=== PATIENT | female | born 1985 | race Caucasian/White ===

== ENCOUNTER 2017-05-16 12:06 | Emergency (ER) | payer BC ==
[2017-05-16] MEDS ORDERED: HYDROmorphone 1 MG/ML Syringe IVPUSH ONE (12:30)
[2017-05-16] MEDS ORDERED: Sodium Chloride 0.9% 10 ML Syringe FLUSH PRN ×2 (12:32→15:13)
[2017-05-16] MEDS ORDERED: Sodium Chloride 0.9% 1,000 ML IV ONE (12:32)
--- NOTE | 2017-05-16 12:39 | EDM.PDOC ---
ED HPI GENERAL MEDICAL PROBLEM - General Chief Complaint: Back Pain or Injury Stated Complaint: LEFT SIDE PAIN/BACK PAIN Time Seen by Provider: 05/16/17 12:21 Source of Information: Reports: Patient History Limitations: Reports: No Limitations - History of Present Illness INITIAL COMMENTS - FREE TEXT/NARRATIVE: Patient is a 31 year old female who presents to the E.D. complaining of left sided CVA/back pain that radiates to the left upper quadrant. States it came on abruptly while sitting at her desk. Pain is worsened with palpation and taking a deep breath. No prior history of similar symptoms. States with standing she gets dizzy and feels her legs are going to give out with worsening pain. Has a history of chronic diarrhea after gallbladder removed. States the pain is sharp in nature and at times feels as if her intestines are getting pulled through her ribs. Has history of cysts to both kidneys. Denies fever, sinus congestion, cough, shows breath, body aches, recent sick exposures, dysuria, blood in her stool, rash, or any additional complaints. left flank area/ribs Pain Score (Numeric/FACES): 7 - Related Data Allergies Allergy/AdvReac Type Severity Reaction Status Date / Time No Known Allergies Allergy Verified 05/16/17 12:17 Home Meds: Home Meds Levothyroxine [Synthroid] 50 mg DAILY 02/11/14 [History] Ascorbate Calcium [Vitamin C] 500 mg PO DAILY 05/16/17 [History] Canagliflozin [Invokana] 100 mg PO BID 05/16/17 [History] Cyclobenzaprine [Flexeril] 15 mg PO BEDTIME 05/16/17 [History] Ergocalciferol (Vitamin D2) [Vitamin D2] 2,000 unit PO DAILY 05/16/17 [History] Gabapentin [Neurontin] 100 mg PO TID 05/16/17 [History] Multivitamin [Multivitamins] 1 each PO DAILY 05/16/17 [History] Vitamin B Complex 1 each PO DAILY 05/16/17 [History] buPROPion [Wellbutrin] 100 mg PO BID 05/16/17 [History] medroxyPROGESTERone Acetate [Depo-Provera] 150 mg IM ASDIRECTED 05/16/17 [ History] Past Medical History Gastrointestinal History: Reports: Cholelithiasis Genitourinary History: Reports: Other (See Below) Other Genitourinary History: cyst on kidney 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: Other (See Below) Other OB/BYN History: is on depo prevara injection Musculoskeletal History: Reports: Back Pain, Chronic Psychiatric History: Reports: Other (See Below) Other Psychiatric History: takes wellbutrin for smoking Endocrine/Metabolic History: Reports: Hypothyroidism - Past Surgical History HEENT Surgical History: Reports: Tonsillectomy GI Surgical History: Reports: Appendectomy, Cholecystectomy Social & Family History - Family History Family Medical History: Noncontributory - Tobacco Use Smoking Status *Q: Current Every Day Smoker Years of Tobacco use: 10 Packs/Tins Daily: 0.5 - Caffeine Use Caffeine Use: Reports: Coffee, Soda - Alcohol Use Days Per Week of Alcohol Use: 0 - Recreational Drug Use Recreational Drug Use: No - Living Situation & Occupation Living situation: Reports: Single Occupation: Employed ED ROS GENERAL - Review of Systems Review Of Systems: See Below Constitutional: Denies: Fever, Chills, Decreased Appetite HEENT: Reports: No Symptoms Respiratory: Reports: Pleuritic Chest Pain. Denies: Shortness of Breath, Cough Cardiovascular: Reports: Chest Pain, Lightheadedness. Denies: Dyspnea on Exertion, Palpitations GI/Abdominal: Reports: Abdominal Pain (Left upper quadrant), Diarrhea. Denies: Black Stool, Bloody Stool, Constipation, Decreased Appetite, Distension, Flatus , Hematemesis, Melena, Nausea, Vomiting : Reports: Flank Pain (Left). Denies: Discharge, Dysuria, Frequency, Hematuria, Pain, Urgency Musculoskeletal: Reports: Back Pain (Left posterior/lateral back pain.) Skin: Reports: No Symptoms Neurological: Reports: Dizziness. Denies: Headache, Numbness, Tingling, Difficulty Walking ED EXAM, GI/ABD - Physical Exam Exam: See Below Exam Limited By: No Limitations General Appearance: Alert, WD/WN, Mild Distress Ears: Hearing Grossly Normal Nose: Normal Inspection Throat/Mouth: Normal Inspection, Normal Oropharynx, Normal Voice, No Airway Compromise Neck: Normal Inspection, Supple Respiratory/Chest: No Respiratory Distress, Lungs Clear, Normal Breath Sounds, Chest Non-Tender Cardiovascular: Normal Peripheral Pulses, Regular Rate, Rhythm, No Murmur GI/Abdominal Exam: Normal Bowel Sounds, Soft, No Organomegaly, No Distention, Tender (Left upper quadrant with palpation that extends into the left flank and CVA.) Back Exam: Normal Inspection, Full Range of Motion, CVA Tenderness (L) Extremities: Normal Inspection, Normal Range of Motion, Non-Tender, No Pedal Edema, Normal Capillary Refill Neurological: Alert, Oriented, CN II-XII Intact, Normal Cognition Psychiatric: Normal Affect, Normal Mood Skin Exam: Warm, Dry, Intact, Normal Color, No Rash Course - Vital Signs Last Recorded V/S: Last Vital Signs Temp 97.4 F 05/16/17 12:14 Pulse 109 H 05/16/17 12:14 Resp 18 05/16/17 12:14 BP 140/94 H 05/16/17 12:14 Pulse Ox 100 05/16/17 12:14 Orthostatic Blood Pressure [ 130/92 Standing] Orthostatic Blood Pressure [ 146/85 Sitting] Orthostatic Blood Pressure [ 131/84 Supine] - Orders/Labs/Meds Orders: Active Orders 24 hr Category Date Time Status Orthostatic Vital Signs [RC] ASDIRECTED Care 05/16/17 12:32 Active Peripheral IV Care [RC] . DIRECTED Care 05/16/17 12:32 Active Peripheral IV Care [RC] . DIRECTED Care 05/16/17 12:32 Active Abdomen Pelvis w Cont [CT] Stat Exams 05/16/17 15:01 Taken Sodium Chloride 0.9% [Saline Flush] Med 05/16/17 12:32 Active 10 ml FLUSH ASDIRECTED PRN Sodium Chloride 0.9% [Saline Flush] Med 05/16/17 15:13 Active 10 ml FLUSH ONETIME PRN Peripheral IV Insertion Adult [OM.PC] Stat Oth 05/16/17 12:29 Ordered Medication Orders Sodium Chloride (Saline Flush) 10 ml FLUSH ASDIRECTED PRN PRN Reason: Keep Vein Open Last Admin: 05/16/17 13:04 Dose: 10 ml Sodium Chloride (Saline Flush) 10 ml FLUSH ONETIME PRN PRN Reason: IV FLUSH Last Admin: 05/16/17 16:34 Dose: 10 ml Labs: Laboratory Tests 05/16/17 05/16/17 05/16/17 Range/Units 12:50 12:50 12:50 WBC 9.98 (3.98-10.04) K/mm3 RBC 5.20 (3.98-5.22) M/mm3 Hgb 15.6 (11.2-15.7) gm/L Hct 45.9 H (34.1-44.9) % MCV 88.3 (79.4-94.8) fl MCH 30.0 (25.6-32.2) pg MCHC 34.0 (32.2-35.5) g/dl RDW Std Deviation 42.5 (36.4-46.3) fL Plt Count 282 (182-369) K/mm3 MPV 9.4 (9.4-12.3) fl Neut % (Auto) 65.8 (34.0-71.1) % Lymph % (Auto) 23.5 (19.3-51.7) % [place] % (Auto) 9.3 (4.7-12.5) % Eos % (Auto) 1.0 (0.7-5.8) Baso % (Auto) 0.1 (0.1-1.2) % Neut # (Auto) 6.56 H (1.56-6.13) K/mm3 Lymph # (Auto) 2.35 (1.18-3.74) K/mm3 [place] # (Auto) 0.93 H (0.24-0.36) K/mm3 Eos # (Auto) 0.10 (0.04-0.36) K/mm3 Baso # (Auto) 0.01 (0.01-0.08) K/mm3 Sodium 140 (136-145) mEq/L Potassium 3.9 (3.5-5.1) mEq/L Chloride 105 (98-107) mEq/L Carbon Dioxide 23 (21-32) mEq/L Anion Gap 15.9 H (5-15) BUN 17 (7-18) mg/dL Creatinine 0.9 (0.55-1.02) mg/dL Est Cr Clr Drug Dosing 93.78 mL/min Estimated GFR (MDRD) > 60 (>60) mL/min BUN/Creatinine Ratio 18.9 H (14-18) Glucose 102 (74-106) mg/dL Calcium 9.7 (8.5-10.1) mg/dL Total Bilirubin 0.3 (0.2-1.0) mg/dL AST 21 (15-37) U/L ALT 40 (14-59) U/L Alkaline Phosphatase 103 (46-116) U/L C-Reactive Protein < 0.2 (<1.0) mg/dL Total Protein 8.1 (6.4-8.2) g/dl Albumin 4.0 (3.4-5.0) g/dl Globulin 4.1 gm/dL Albumin/Globulin Ratio 1.0 (1-2) HCG, Qual Negative (NEGATIVE) Urine Color (Yellow) Urine Appearance (Clear) Urine pH (5.0-8.0) Ur Specific [place] (1.005-1.030) Urine Protein (Negative) Urine Glucose (UA) (Negative) Urine Ketones (Negative) Urine Occult Blood (Negative) Urine Nitrite (Negative) Urine Bilirubin (Negative) Urine Urobilinogen (0.2-1.0) Ur Leukocyte Esterase (Negative) Urine RBC (0-5) /hpf Urine WBC (0-5) /hpf Ur Epithelial Cells (0-5) /hpf Urine Bacteria (FEW) /hpf Urine Mucus (FEW) /hpf 12//17 Range/Units 12:50 WBC (3.98-10.04) K/mm3 RBC (3.98-5.22) M/mm3 Hgb (11.2-15.7) gm/L Hct (34.1-44.9) % MCV (79.4-94.8) fl MCH (25.6-32.2) pg MCHC (32.2-35.5) g/dl RDW Std Deviation (36.4-46.3) fL Plt Count (182-369) K/mm3 MPV (9.4-12.3) fl Neut % (Auto) (34.0-71.1) % Lymph % (Auto) (19.3-51.7) % [place] % (Auto) (4.7-12.5) % Eos % (Auto) (0.7-5.8) Baso % (Auto) (0.1-1.2) % Neut # (Auto) (1.56-6.13) K/mm3 Lymph # (Auto) (1.18-3.74) K/mm3 [place] # (Auto) (0.24-0.36) K/mm3 Eos # (Auto) (0.04-0.36) K/mm3 Baso # (Auto) (0.01-0.08) K/mm3 Sodium (136-145) mEq/L Potassium (3.5-5.1) mEq/L Chloride (98-107) mEq/L Carbon Dioxide (21-32) mEq/L Anion Gap (5-15) BUN (7-18) mg/dL Creatinine (0.55-1.02) mg/dL Est Cr Clr Drug Dosing mL/min Estimated GFR (MDRD) (>60) mL/min BUN/Creatinine Ratio (14-18) Glucose (74-106) mg/dL Calcium (8.5-10.1) mg/dL Total Bilirubin (0.2-1.0) mg/dL AST (15-37) U/L ALT (14-59) U/L Alkaline Phosphatase (46-116) U/L C-Reactive Protein (<1.0) mg/dL Total Protein (6.4-8.2) g/dl Albumin (3.4-5.0) g/dl Globulin gm/dL Albumin/Globulin Ratio (1-2) HCG, Qual (NEGATIVE) Urine Color Colorless L (Yellow) Urine Appearance Clear (Clear) Urine pH 6.0 (5.0-8.0) Ur Specific [place] 1.010 (1.005-1.030) Urine Protein Negative (Negative) Urine Glucose (UA) 2+ H (Negative) Urine Ketones Negative (Negative) Urine Occult Blood Trace-lysed H (Negative) Urine Nitrite Negative (Negative) Urine Bilirubin Negative (Negative) Urine Urobilinogen 0.2 (0.2-1.0) Ur Leukocyte Esterase Negative (Negative) Urine RBC 0-5 (0-5) /hpf Urine WBC 0-5 (0-5) /hpf Ur Epithelial Cells 0-5 (0-5) /hpf Urine Bacteria Few (FEW) /hpf Urine Mucus Not seen (FEW) /hpf Meds: Medications Generic Name Dose Route Start Last Admin Trade Name Freq PRN Reason Stop Dose Admin Sodium Chloride 10 ml 05/16/17 12:32 05/16/17 13:04 Saline Flush FLUSH 10 ml ASDIRECTED PRN Administration Keep Vein Open Sodium Chloride 10 ml 05/16/17 15:13 05/16/17 16:34 Saline Flush FLUSH 10 ml ONETIME PRN Administration IV FLUSH Discontinued Medications Generic Name Dose Route Start Last Admin Trade Name Abraham PRN Reason Stop Dose Admin Diatrizoate Meglum/Diatrizoate Sod 90 ml 05/16/17 15:13 05/16/17 16:34 Gastrografin 37% PO 05/16/17 15:14 90 ml ONETIME ONE Administration Hydromorphone HCl 1 mg 05/16/17 12:30 05/16/17 13:02 Dilaudid IVPUSH 05/16/17 12:31 1 mg ONETIME ONE Administration Sodium Chloride 1,000 mls @ 999 mls/hr 05/16/17 12:32 05/16/17 13:03 Normal Saline IV 05/16/17 13:32 999 mls/hr ONETIME ONE Administration Iopamidol 125 ml 05/16/17 15:13 05/16/17 16:34 Isovue-300 (61%) IVPUSH 05/16/17 15:14 125 ml ONETIME ONE Administration - Re-Assessments/Exams Free Text/Narrative Re-Assessment/Exam: IV established with Dilaudid 1 mg IVP. Orthostatic vitals will be obtained. If positive we'll start normal saline 1000 mL over an hour. Initial labs and studies include CBC, chem 14, CRP, hCG, UA, and 2 view abdomen flat and upright. Orthostatic vitals negative. Labs reviewed: CBC and chemistry panel essentially normal. CRP less than 0.2. HCG negative. UA revealed glucose 2+, trace occult blood, urine color colors. Abdominal 2 view flat and upright: [place] stool within the colon. Questional dilatation of the colon and left hemicolon with air-fluid levels to the right hemicolon. Initially ordered CT of the abdomen and pelvis with no contrast with concerns of patient has a kidney stone. Discontinue this ordered will order with IV and oral contrast. Per radiology staff patients studies were sent to [facility] to have the CT study read. 05/16/17 18:08 CT abdomen and pelvis with IV and oral contrast impression: No acute findings. Shared results of CT study with pain is controlled. Mild fecal retention in the colon. Will send home with mag citrate. Discharge instructions as documente. Departure - Departure Time of Disposition: 18:13 Disposition: Home, Self-Care 01 Clinical Impression: Abdominal pain Fecal retention Qualifiers: Constipation type: unspecified constipation type Qualified Code(s): K59.00 - Constipation, unspecified - Discharge Information Instructions: Constipation, Adult, [id number], Abdominal Pain, Adult, Easy-to -Read, Pain Medicine Instructions, [id number] Referrals: Babak Orantes MD [Primary Care Provider] - Forms: ED Department Discharge, ED Return to Work/School Form Additional Instructions: As discussed no acute findings noted on CT study of the abdomen and pelvis. Lab work was essentially normal with no concerning findings. There was trace blood within the urine please follow up with PCP to ensure this resolves. There was also mild fecal impaction noted within the colon. This may be contributing to your discomfort. Treatment at this point will be mag citrate 296 mils this evening. Start taking MiraLAX one capful twice a day for the next 2 weeks and then changed to every day thereafter. Increase your water intake. Increased fiber intake. Follow-up with PCP for reevaluation in the next week. Return to ED for any new or worsening symptoms. For severe pain take norco 5/325 1 tab po every 4 [address] while taking the norco. - My Orders Last 24 Hours: My Active Orders 05/16/17 12:29 Peripheral IV Insertion Adult [OM.PC] Stat 05/16/17 12:32 Orthostatic Vital Signs [RC] ASDIRECTED Peripheral IV Care [RC] . DIRECTED Peripheral IV Care [RC] . DIRECTED Sodium Chloride 0.9% [Saline Flush] 10 ml FLUSH ASDIRECTED PRN 05/16/17 15:01 Abdomen Pelvis w Cont [CT] Stat 05/16/17 15:13 Sodium Chloride 0.9% [Saline Flush] 10 ml FLUSH ONETIME PRN - Assessment/Plan Last 24 Hours: My Active Orders 05/16/17 12:29 Peripheral IV Insertion Adult [OM.PC] Stat 05/16/17 12:32 Orthostatic Vital Signs [RC] ASDIRECTED Peripheral IV Care [RC] . DIRECTED Peripheral IV Care [RC] . DIRECTED Sodium Chloride 0.9% [Saline Flush] 10 ml FLUSH ASDIRECTED PRN 05/16/17 15:01 Abdomen Pelvis w Cont [CT] Stat 05/16/17 15:13 Sodium Chloride 0.9% [Saline Flush] 10 ml FLUSH ONETIME PRN
[2017-05-16] MEDS ORDERED: Iopamidol 612 MG/ML 150 ML Bottle IVPUSH ONE (15:13)
[2017-05-16] MEDS ORDERED: Diatrizoate Meglumine/Diatrizoate Sodium 37% 120 ML Bottle PO ONE (15:13)
--- NOTE | 2017-05-16 15:42 | CR ---
Abdomen: Supine and upright views of the abdomen were obtained. Comparison: Prior abdominal x-ray of 10/12/14. Previous cholecystectomy is noted. Bowel gas pattern appears within normal limits. No free air is identified. Scoliosis is present within the spine. Minimal degenerative change is scattered within the spine. No abnormal calcifications or soft tissue abnormality is seen. Impression: 1. Incidental findings as noted above. Diagnostic code #2
[2017-05-16] MEDS ORDERED: Magnesium Citrate Solution 296 ML Bottle PO ONE (18:55)
[2017-05-16] MEDS ORDERED: Magnesium Citrate Solution 296 ML Bottle ONE (18:58)
[2017-05-16 19:27] VITALS: BP 126/83
--- NOTE | 2017-05-17 06:49 | CT ---
CT abdomen and pelvis Technique: Multiple axial sections were obtained from above the dome of the diaphragm inferiorly through the pubic symphysis. Intravenous and oral contrast was utilized. Delayed images were also obtained through the bladder. Comparison: Prior CT abdomen and pelvis exam of 10/12/14. Findings: Visualized lung bases show slight atelectasis. Several calcifications are seen within the dome of the liver most likely representing mild diaphragmatic calcification. Liver shows no focal parenchymal abnormality. Fatty infiltration may be present within the liver. Surgical clips are seen from prior cholecystectomy. Common bile duct is slightly prominent in size measuring 1.6 cm likely residual from prior cholecystectomy. Adrenal glands show no nodule. Kidneys show symmetric contrast enhancement. Cyst is identified within the left kidney measuring 6.3 cm which has increased in size from previous exam at which time it measured 5.0 cm. Pancreas appears within normal limits. Aorta shows no aneurysmal dilatation. Small fat-containing umbilical hernia is seen. Previous appendectomy is noted. No pelvic mass or adenopathy is seen. Contrast noted within the bladder. Bone window settings were reviewed which appear within normal limits for the patient's age. Minimal increased stool is seen throughout the colon. Impression: 1. Incidental findings as noted above. Other than increased size of a left renal cyst, no significant interval change is seen from prior exam. 2. Nothing acute is identified. Diagnostic code #2 I agree with preliminary report issued by [employer] ([employer] preliminary report dictated on 05/16/17, 6:44 PM Central Time)
== END 2017-05-16 18:58 | disposition home or self-care (01) ==
LOC: JD.ED 12:06
DX: K59.00 Constipation, unspecified (principal); E03.9 Hypothyroidism, unspecified; F17.210 Nicotine dependence, cigarettes, uncomplicated; Z79.899 Other long term (current) drug therapy
CPT/HCPCS: 36415; 74020; 74177; 80053; 81001; 84703; 85025; 86140; 96361; 96374; 99284; A9270; J1170; J7040; J7050; Q9963; Q9967

== ENCOUNTER 2024-11-26 06:00 | Day surgery (SDC) | payer BC ==
[~2024-11-26 06:00] MED LIST: Sodium Chloride 0.9% 10 ML Syringe FLUSH PRN; Sodium Chloride 0.9% 10 ML Syringe FLUSH SCH; oxyCODONE ER 10 MG TAB.ER PO ONE
[2024-11-26] MEDS: Lactated Ringers 1,000 ML IV SCH (06:19)
[2024-11-26] MEDS: Acetaminophen 325 MG Tab PO ONE (06:19)
[2024-11-26] MEDS: Pregabalin 25 MG Cap PO ONE (06:19)
[2024-11-26] MEDS ORDERED: fentaNYL 100 MCG/2 ML SDV IVPUSH PRN (06:23)
[2024-11-26] MEDS ORDERED: HYDROmorphone 0.5 MG/0.5 ML Syringe IVPUSH PRN (06:23)
[2024-11-26] MEDS ORDERED: Ondansetron 4 MG/2 ML SDV IVPUSH PRN (06:23)
[2024-11-26] MEDS ORDERED: Ketorolac 30 MG/ML SDV ONE (06:30)
[2024-11-26] MEDS ORDERED: Ondansetron 4 MG/2 ML SDV ONE (06:30)
[2024-11-26] MEDS ORDERED: Midazolam 1 MG/ML 2 ML SDV ONE (06:30)
[2024-11-26] MEDS ORDERED: ceFAZolin 2 GM Vial ONE (06:30)
[2024-11-26] MEDS ORDERED: Dexamethasone 4 MG/ML 5 ML MDV ONE (06:30)
[2024-11-26] MEDS ORDERED: Propofol 200 MG/20 ML SDV ONE ×2 (06:30→07:46)
[2024-11-26] MEDS: oxyCODONE ER 10 MG TAB.ER PO ONE (06:31)
[2024-11-26] MEDS ORDERED: Lactated Ringers 1,000 ML ONE (06:34)
[2024-11-26] MEDS ORDERED: Lidocaine 1% 2 ML ONE (07:15)
[2024-11-26] MEDS: Morphine 8 MG, EPINEPHrine 0.3 MG, Cefuroxime 750 MG, Ketorolac 30 MG, Sodium Chloride ... PRN (08:08)
[2024-11-26] MEDS: VANCOmycin 1 GM SDV ONE (08:09)
[2024-11-26] MEDS: Tranexamic Acid 1,000 MG/10 ML Vial ONE (08:09)
[2024-11-26] MEDS: oxyCODONE 5 MG Tab PO PRN (11:10)
[2024-11-26 13:14] VITALS: BP 103/63; PULSE 70
== END 2024-11-26 12:35 | disposition home or self-care (01) ==
LOC: JD.SDS 06:00
PROVIDERS: ATTEND Orthopaedic Surgery
DX: M16.11 Unilateral primary osteoarthritis, right hip (principal); E78.00 Pure hypercholesterolemia, unspecified; F41.1 Generalized anxiety disorder; I10 Essential (primary) hypertension; E03.9 Hypothyroidism, unspecified; F17.200 Nicotine dependence, unspecified, uncomplicated
CPT/HCPCS: 0055T; 27130; 73501; 97116; 97161; 97530; A9270; C1713; C1776; J0171; J0690; J0697; J1100; J1885; J2003; J2250; J2272; J2405; J2704; J3370; J7120; 01214